=== PATIENT | female | born 1960 | race Caucasian/White ===

== ENCOUNTER 2019-07-01 08:45 | Day surgery (SDC) | payer OTHER ==
[~2019-07-01 08:45] MED LIST: BACITRACIN 50000 UNIT VIAL ONE; CEFAZOLIN/SWI 1gm 1 GM/10 ML SYR ONE; FENTANYL CITR 250 MCG/5 ML ONE; GENTAMICIN SULF 80 MG/2ML INJ ONE; LIDOCAINE 2% MPF 5 ML VIAL ONE; MIDAZOLAM HCL 2 MG/2 ML INJ ONE; NS 0.9% VIAL 10 ML ONE; NS 0.9% VIAL 30 ML ONE; ONDANSETRON 4 MG/2 ML VIAL ONE; PROPOFOL 200 MG/20 ML VIAL IV ONE; Phenylephrine HCl 10 MG/ML 1 ML VIAL ONE; ROCURONIUM 50 MG/5 ML VIAL IV ONE; Ringers Lactate 1,000 ML IV ONE
[2019-07-01] MEDS ORDERED: CEFAZOLIN/SWI 1gm 1 GM/10 ML SYR ONE (08:55)
[2019-07-01] MEDS ORDERED: Ringers Lactate 1,000 ML IV ONE ×3 (08:55→14:03)
[2019-07-01] MEDS ORDERED: SCOPOLAMINE HYDROBROMIDE PATCH TD ONE ×2 (08:55→09:30)
--- NOTE | 2019-07-01 08:59 | RAD REPORT ---
EXAM DESCRIPTION: RAD - Chest Pa And Lat (2 Views) - 07/01/2019 8:48 am CLINICAL HISTORY: preop Chest pain. COMPARISON: No comparisons FINDINGS: The lungs are clear. The heart is normal in size. No displaced fractures. Mild to moderate thoracolumbar scoliosis. IMPRESSION: No acute or concerning finding suspected.
[2019-07-01 09:21] LABS: Absolute Lymphocytes (CBC) 0.7 K/uL (0.7-4.9); Hematocrit 42.2 % (36.0-45.0); Lymphocytes % 9.4 % (15.3-44.8); MPV 9.4 fL (7.6-11.3); RBC Red Blood Cell Count 4.66 M/uL (3.86-4.86)
[2019-07-01] MEDS ORDERED: LIDOCAINE JELLY 2%- 5 ML TUBE ONE ×2 (09:54→13:37)
--- NOTE | 2019-07-01 11:36 | EKG ---
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
[2019-07-01] MEDS ORDERED: EPINEPHRINE/PF 1 MG/ML AMP ONE (11:46)
[2019-07-01] MEDS ORDERED: NA CHLORIDE 0.9% 500 ML ONE (11:46)
[2019-07-01] MEDS ORDERED: EPHEDRINE SULF 50 MG/ML VIAL ONE ×3 (13:25→13:37)
[2019-07-01] MEDS ORDERED: ONDANSETRON 4 MG/2 ML VIAL ONE ×2 (13:37→17:42)
[2019-07-01] MEDS ORDERED: Phenylephrine HCl 10 MG/ML 1 ML VIAL ONE (13:37)
[2019-07-01] MEDS ORDERED: PROPOFOL 200 MG/20 ML VIAL IV ONE (13:37)
[2019-07-01] MEDS ORDERED: NS 0.9% VIAL 30 ML ONE (13:37)
[2019-07-01] MEDS ORDERED: ROCURONIUM 50 MG/5 ML VIAL IV ONE ×2 (13:37→13:46)
[2019-07-01] MEDS ORDERED: FENTANYL CITR 250 MCG/5 ML ONE (13:37)
[2019-07-01] MEDS ORDERED: LIDOCAINE 2% MPF 5 ML VIAL ONE (13:37)
[2019-07-01] MEDS ORDERED: MIDAZOLAM HCL 2 MG/2 ML INJ ONE (13:37)
[2019-07-01] MEDS ORDERED: Mastisol Adhesive Liq ONE (13:59)
[2019-07-01] MEDS ORDERED: NEOSTIGMINE 1 MG/ML -10 ML VIAL ONE (14:03)
[2019-07-01] MEDS ORDERED: GLYCOPYRROLATE 0.2 MG/ML SYR ONE (14:03)
[2019-07-01] MEDS ORDERED: BALANCED SALT IRRIG PLAIN 500 ML BTL IRR ONE (14:15)
[2019-07-01] MEDS ORDERED: BSS OPTHALMIC SOL 15 ML BOT OPTH ONE (14:17)
[2019-07-01] MEDS: HYDROMORPHONE HCL 2 MG/ML inj ONE ×2 (14:26→14:31)
[2019-07-01] MEDS ORDERED: METOCLOPRAMIDE 10 MG/2mL INJ ONE (14:46)
[2019-07-01] MEDS ORDERED: dexAMETHasone 4 MG/ML VIAL ONE (14:46)
[2019-07-01] MEDS ORDERED: PROMETHAZINE 25 MG/ML VIAL ONE (14:46)
[2019-07-01] MEDS: MORPHINE 4 MG/ML SYR ONE ×8 (14:49→15:52)
[2019-07-01] MEDS ORDERED: KETOROLAC 30 MG/ML INJ ONE (15:10)
[2019-07-01] MEDS ORDERED: CODEINE 30MG/APAP 300MG TAB ONE (16:46)
[2019-07-01 16:56] VITALS: BP 130/81; TEMP 98.4; O2SAT 95
--- NOTE | 2019-07-02 07:06 | OP ---
Surgeon: Jostin Ashby MD [facility] Insurance Representative: Fred. Preoperative Diagnosis: Breast enlargement and descent. Postoperative Diagnosis: Breast enlargement and descent. Procedure Performed: Breast lift and reduction. Anesthesia: General. Procedure In Detail: After satisfactory induction of general anesthesia, the chest was prepped with DuraPrep, dry sterile drapes applied in the usual manner. 30 template was used to outline the right and left areola and then a transverse curvilinear inferior incision was made and the skin was de-epit helialized with dermabrader or EpiCut. Then the transverse incision was made. Full-thickness, flap was elevated to 1.2 cm thickness, elevated towards the sternum, clavicle, and anterior axillary line. This was done on both sides simultaneously. After this was done, inferior incisions were made. Th e breast underwent conization. Prior to conization excess breast tissue septal lateral was resected with a scalpel, electrocautery for hemostasis. Cone was formed with 2-0 PDS interrupted sutures at b oth sides subcutaneously and they our attention turned to the right breast. Straps were elevated at 12 o'clock, 1:30, and 3 o'clock position. The straps were then woven in and out the pectoralis major muscle back to the base of the cone and tied to themselves with 2-0 PDS sutures. At 3 o'clock strap was sewn over the sternum at 3 o'clock position with 2-0 Ethibond. A mirror image procedure was don e on the left side. The wounds were temporary melia shut. Patient had excess fat inferolaterally. This was excised with electrocautery . Then, a running 3-0 Vicryl suture was placed hold ing the inferior dermis down to the Fadia's fascia and this was done with running 3-0 Vicryl, this w as done on both sides. Then 10 ISREAL was brought out of axilla, wound was irrigated with antibiotic sasha ution and then the wounds were closed. Interrupted 3-0 Vicryl subcu and 3-0 PDS running subcuticular in the vertical meridian breast. Then patient was sat up. Site for new nipple-areolar complex was marked out with a 38 template, tissue cored out, and nipple was delivered. Sewn with 4-0 PDS followe d by 4-0 PDS running subcuticular. Dressings consisted of tincture of benzoin, Steri-Strips, 5 x 5's , fluffs, and Adriano wrap. Patient tolerated the procedure well. The amount removed from the right vijay ast was . RICKIE/MODJose Angel Voice ID: [id number] Report ID: [id number]
== END 2019-07-01 18:02 | disposition home or self-care (01) ==
LOC: OR 08:45
PROVIDERS: ATTEND Specialist
PROC: 0H0V0ZZ Alteration of Bilateral Breast, Open Approach (ICD-10-PCS; 2019-07-01)
PROC: 0H0V0ZZ Alteration of Bilateral Breast, Open Approach (ICD-10-PCS; principal; 2019-07-01 09:00)
DX: N64.81 Ptosis of breast (principal); N62 Hypertrophy of breast; E07.9 Disorder of thyroid, unspecified
CPT/HCPCS: 93005; 85025; 36415; 88305; 71046; 19316; 19318; J2704 ×2; J2710; J0171; J2550; J2370 ×2; J1580; J2250 ×2; J1170; J3010 ×2; J0690 ×2; J7120 ×4; J7040; J2405 ×3; J2765